=== PATIENT | female | born 1950 | race Native Hawaiian/Other Pacific Islander ===

== ENCOUNTER 2019-03-07 22:27 | Outpatient (CLI) | payer OTHER | END 2019-03-07 22:43 | disposition short-term general hospital (02) | LOC: AMB 22:27 | DX: T54.91XA Toxic effect of unspecified corrosive substance, accidental (unintentional), initial encounter (principal); Y92.019 Unspecified place in single-family (private) house as the place of occurrence of the external cause | CPT/HCPCS: A0425; A0427 ==